=== PATIENT | female | born 1940 | race Caucasian/White ===

== ENCOUNTER 2020-09-11 15:44 | Emergency (ER) | payer MEDICARE, SELFPAY ==
[2020-09-11 16:00] VITALS: BP 139/61; PULSE 74; RESP 18; TEMP 36.3; O2SAT 98
== END 2020-09-11 16:25 | disposition left against medical advice (07) ==
PROVIDERS: Emergency Provider Internal Medicine Hematology & Oncology
DX: Z53.21 Procedure and treatment not carried out due to patient leaving prior to being seen by health care provider (principal)
CPT/HCPCS: 99199

== ENCOUNTER 2021-02-24 11:37 | Outpatient (CLI) | payer MEDICARE, SELFPAY ==
--- NOTE | ~2021-02-24 | CT_ITS ---
EXAMINATION: CT abdomen pelvis w con EXAM DATE: 02/24/2021 12:38 INDICATION: Weight loss 40 pounds in 4 months, history chronic pancreatitis. TECHNIQUE: Spiral CT of the abdomen and pelvis was performed following intravenous injection of 100 m L Omnipaque 350. Axial, coronal and sagittal images of the abdomen and pelvis were reviewed. The do se-length product (DLP) for this examination was 296.21 mGy-cm. The exposure was tailored according to patient size (auto mA exposure control), and iterative reconstruction (ASIR) was used as additiona l dose reduction technique. There is no prior study for comparison. FINDINGS: The liver, spleen, adrenal glands and pancreas are unremarkable. Gallbladder not identifie d, patient likely has had cholecystectomy. Small amount of pneumobilia. Portal and splenic veins are patent. Kidneys enhance symmetrically. There is no hydronephrosis. The uterus is not identified and has likely been surgically resected. The bladder is unremarkable. There is no retroperitoneal o r pelvic lymphadenopathy. The appendix is not positively visualized. There is no pericecal inflammatory change to suggest appe ndicitis. There is mild to moderate scattered colonic diverticulosis. There is no adjacent inflammat ory change to suggest diverticulitis. The stomach and small bowel are unremarkable. There is expecte d amount of colonic stool. No free intraperitoneal gas. The heart is normal in size. There are n o pericardial or pleural effusions. The lung bases are unremarkable. There are no osteoblastic or o steolytic lesions identified. Mild lumbar levoscoliosis. IMPRESSION: 1. Mild to moderate colonic diverticulosis. 2. No malignancy identified. Reviewed, dictated and finalized at location B. CTOR OF RESEARCH AND DEVELOPMENT
[2021-02-24 12:22] LABS: Estimated Glomerular Filt Rate > 60
[2021-02-24 13:11] LABS: Basophils Percent Auto 0.7 % (0.2-1.2); Eosinophils Percent Auto 0.5 % (0-4.4); Hemoglobin 12.9 g/dL (12.0-15.0); Immature Granulocyte Absolute 0.01 K/mm3 (0.00-0.031); Immature Granulocyte Percent A 0.2 % (0-0.5); Lymphocytes Absolute Auto 1.57 K/mm3 (0.9-3.2); Mean Corpuscular HGB Conc 31.5 g/dl (32-36); Mean Corpuscular Hemoglobin 28.7 pg (26-34); Mean Corpuscular Volume 91.3 fl (80-100); Mean Platelet Volume 9.3 fl (7.4-10.4); Monocytes Absolute Auto 0.4 K/mm3 (0.1-0.6); Monocytes Percent Auto 6.8 % (2.6-8.5); Neutrophils Absolute Auto 3.6 K/mm3 (1.3-6.7); Neutrophils Percent Auto 63.8 % (45.5-73.1); Platelet Count Result 211 k/mm3 (150-375); Red Blood Count 4.49 M/mm3 (4.2-5.4); Red Cell Distribution Width 13.3 % (11.5-14.5); White Blood Count 5.6 K/mm3 (4.5-10.0)
[2021-02-24 13:27] LABS: Alanine Aminotransferase 15 U/L (4-35); Albumin Level 4.8 g/dL (3.5-5.1); Alkaline Phosphatase 63 U/L (38-126); Anion Gap 12 mmol/L (8-16); Aspartate Amino Transferase 28 U/L (14-36); Bilirubin,Total 0.4 mg/dL (0.2-1.3); Blood Urea Nitrogen 16 mg/dL (7-17); Calcium 9.4 mg/dL (8.4-10.2); Carbon Dioxide 24 mmol/L (22-30); Chloride 98 mmol/L (98-107); Estimated Glomerular Filt Rate > 60; Glucose 96 mg/dL (65-110); Potassium 3.7 mmol/L (3.4-5.0); Sodium 134 mmol/L (137-145)
[2021-02-24 13:35] LABS: Amylase 68 U/L (30-110); Lipase 45 U/L (23-300); Magnesium 1.9 mg/dL (1.6-2.3)
[2021-02-24 13:59] LABS: Erythrocyte Sedimentation Rate 12 mm/hr (0-20)
== END 2021-02-24 11:38 | disposition home or self-care (01) ==
PROVIDERS: PCP Internal Medicine; Visit Provider Internal Medicine
DX: R63.4 Abnormal weight loss (principal); I11.0 Hypertensive heart disease with heart failure; K86.1 Other chronic pancreatitis; N18.9 Chronic kidney disease, unspecified; K57.30 Diverticulosis of large intestine without perforation or abscess without bleeding
CPT/HCPCS: 74177; 80053; 82150; 83690; 83735; 85025; 85652; Q9967

== ENCOUNTER 2021-11-03 13:47 | Outpatient (CLI) | payer MEDICARE, SELFPAY ==
[2021-11-03 18:57] LABS: Basophils Absolute Auto 0.1 K/mm3 (0.0-0.1); Basophils Percent Auto 0.6 % (0.2-1.2); Eosinophils Absolute Auto 0.1 K/mm3 (0-0.3); Eosinophils Percent Auto 0.8 % (0-4.4); Hematocrit 32.6 % (37.0-47.0); Hemoglobin 9.7 g/dL (12.0-15.0); Immature Granulocyte Absolute 0.01 K/mm3 (0.00-0.031); Immature Granulocyte Percent A 0.1 % (0-0.5); Lymphocytes Absolute Auto 1.95 K/mm3 (0.9-3.2); Lymphocytes Percent Auto 25.3 % (18.3-44.2); Mean Corpuscular HGB Conc 29.8 g/dl (32-36); Mean Corpuscular Hemoglobin 25.9 pg (26-34); Mean Corpuscular Volume 87.2 fl (80-100); Mean Platelet Volume 10.5 fl (7.4-10.4); Monocytes Absolute Auto 0.4 K/mm3 (0.1-0.6); Monocytes Percent Auto 5.6 % (2.6-8.5); Neutrophils Absolute Auto 5.2 K/mm3 (1.3-6.7); Neutrophils Percent Auto 67.6 % (45.5-73.1); Platelet Count Result 245 k/mm3 (150-375); Red Blood Count 3.74 M/mm3 (4.2-5.4); Red Cell Distribution Width 15.1 % (11.5-14.5); White Blood Count 7.7 K/mm3 (4.5-10.0)
[2021-11-03 19:05] LABS: Alanine Aminotransferase 16 U/L (6-35); Albumin Level 4.4 g/dL (3.5-5.1); Alkaline Phosphatase 46 U/L (38-126); Amylase 84 U/L (30-110); Anion Gap 9 mmol/L (8-16); Aspartate Amino Transferase 34 U/L (14-36); Bilirubin,Total 0.3 mg/dL (0.2-1.3); Blood Urea Nitrogen 20 mg/dL (7-17); Calcium 8.7 mg/dL (8.4-10.2); Carbon Dioxide 28 mmol/L (22-30); Chloride 101 mmol/L (98-107); Estimated Glomerular Filt Rate 53; Glucose 122 mg/dL (65-110); Lipase 104 U/L (23-300); Potassium 4.5 mmol/L (3.4-5.0); Sodium 138 mmol/L (137-145)
[2021-11-03 19:32] LABS: Ferritin 8.52 ng/mL (11.1-264)
[2021-11-03 19:35] LABS: Hypochromasia 1+ (NORMAL); Ovalocytes 1+ (NORMAL); Platelet Estimate Adequate (Adequate)
== END 2021-11-03 13:48 | disposition home or self-care (01) ==
PROVIDERS: PCP Internal Medicine; Visit Provider Internal Medicine
DX: E03.9 Hypothyroidism, unspecified (principal); Z87.19 Personal history of other diseases of the digestive system; D64.9 Anemia, unspecified; R11.0 Nausea
CPT/HCPCS: 36415; 80053; 82150; 82728; 83690; 84443; 85025

== ENCOUNTER 2022-09-19 11:46 | Emergency (ER) | payer MEDICARE, SELFPAY ==
[2022-09-19 12:05] VITALS: BP 111/86; PULSE 67; RESP 16; TEMP 36.5; O2SAT 95
--- NOTE | 2022-09-19 13:32 | ED.GENADULT ---
HPI - General Adult General Chief complaint: Skin/Abscess/Foreign Body Stated complaint: rash on left arm-possible bug bites Time Seen by Provider: 09/19/22 12:19 History of Present Illness HPI narrative: 81-year-old female reports for evaluation for areas of redness on her right arm since yesterday. She states she thinks she may have been bitten by a bug and noticed while she was brushing her teeth. States today she noticed that there was increased redness. She denies itchiness but does report pain when it is touched. Denies fever, bodyaches or chills, chest pain or shortness of breath, nausea or vomiting, drainage. Related Data Home Medications Medication Instructions Recorded Confirmed magnesium chloride 71.5 mg 71.5 mg PO DAILY 03/15/19 05/03/22 (magnesium chloride) tablet,delayed release (Slow-Mag) cholecalciferol (vitamin D3) 25 25 mcg PO DAILY 12/31/19 05/03/22 mcg (1,000 unit) capsule ursodiol 250 mg tablet 250 mg PO DAILY 12/31/19 05/03/22 omeprazole 40 mg capsule,delayed 40 mg PO DAILY 01/16/20 05/03/22 release clonazepam 0.25 mg disintegrating 0.5 mg PO DAILY PRN 02/24/21 05/03/22 tablet metoprolol tartrate 25 mg tablet 12.5 mg PO BID 04/21/21 05/03/22 metoclopramide HCl 5 mg tablet 10 mg PO BID 07/07/21 05/03/22 (Reglan) apixaban 5 mg tablet (Eliquis) See Rx Instructions PO BID 11/03/21 05/03/22 Allergies Allergy/AdvReac Type Severity Reaction Status Date / Time meperidine Allergy Unknown Hives Verified 09/19/22 12:35 Penicillins Allergy Unknown Hives Verified 09/19/22 12:35 Review of Systems Review of Systems: CONSTITUTIONAL: Denies fever, chills EYES: Denies visual changes, redness, or discharge. ENT: Denies rhinorrhea, congestion, sore throat, or otalgia. CARDIOVASCULAR: Denies chest pain, palpitations, or edema. RESPIRATORY: Denies cough or dyspnea. GASTROINTESTINAL: Denies abdominal pain, nausea, vomiting, or diarrhea. GENITOURINARY: Denies dysuria or hematuria. SKIN: See HPI MUSCULOSKELETAL: Denies back pain, joint pain, or myalgia. NEUROLOGIC: Denies headache, numbness, dizziness, or weakness. PSYCHIATRIC: Denies anxiety or depression. [facility] Past Medical History Medical History Acquired hypothyroidism Benign essential hypertension Chronic pancreatitis CKD (chronic kidney disease) HLD (hyperlipidemia) Positive colorectal cancer screening using Cologuard test Surgical History Surgical History History of appendectomy History of cholecystectomy History of ERCP History of hysterectomy Family History Family History Father Diabetes mellitus Sibling Lung cancer Son Epilepsy Social History Social History Smoking status: Never smoker Smoking end date: 03/14/80 Alcohol intake: never Exam Narrative: GENERAL: Well-appearing, in no acute distress. Patient resting in room examined. She is pleasant and conversational HEAD: Normocephalic EYES: PERRLA ENT: Nares clear. Mucous membranes moist. Oropharynx without tonsillar hypertrophy exudate or other lesions. NECK: Supple. CHEST: No respiratory distress. Clear to auscultation, no adventitious breath sounds. HEART: Regular rate and rhythm. No murmur heard. Normal peripheral pulses. EXTREMITIES: Normal range of motion. No edema. SKIN: 2 regions of blanching erythema and warmth to the dorsum of the right forearm, one area measuring 2 x 2, one area measuring 5 x 3 with tenderness to palpation. Radial pulse 2+. Cap refill less than 2. Sensation intact. Negative Nikolsky's. No fluctuance, bullae or edema. No other lesions throughout skin. NEURO: No focal deficits. Alert and oriented x3. PSYCH: Normal mood and affect. Course Vital Signs Vital signs: Vital Signs Temperat
== END 2022-09-19 14:01 | disposition home or self-care (01) ==
PROVIDERS: Emergency Provider Physician Assistant; PCP Student in an Organized Health Care Education/Training Program
DX: L03.113 Cellulitis of right upper limb (principal); I12.9 Hypertensive chronic kidney disease with stage 1 through stage 4 chronic kidney disease, or unspecified chronic kidney disease; N18.9 Chronic kidney disease, unspecified; E78.5 Hyperlipidemia, unspecified; K86.1 Other chronic pancreatitis; E03.9 Hypothyroidism, unspecified; Z90.710 Acquired absence of both cervix and uterus; Z90.49 Acquired absence of other specified parts of digestive tract
CPT/HCPCS: 99283

== ENCOUNTER 2024-11-23 14:08 | Outpatient (CLI) | payer MEDICARE, SELFPAY ==
--- OUTSIDE RECORDS SUMMARY | 2009-05-26 05:00 | XMS_ITS | Continuity of Care Document ---
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 Role Phone Will Solis Unavailable Unavailable Procedures Procedure Date Office/outpatient Visit, Est Office/outpatient Visit, Est Office Consultation Advance Directives Directive Yes / No Effective Date File Name No Information Encounters Encounter Description Practice Location Reason(s) For Visit Diagnoses Date Provider Providers Copied on Encounter Office/outpati ent Visit, Est [facility], [id number] [place] [address] [address], [place], [place], [id number], [place] tel:[phone] [facility] No Information 5-201 0 Irma Solis. [address] , [address], [place], [address], [place]. tel:[phone] Referring Provider: Liya Roe OD, [address], [place], [address]. tel:[phone] Office/outpati ent Visit, [facility], [address] [place] [address] [address], [place], [place], [id number], [place] tel:[phone] [facility] No Information 2-200 8 Irma Solis. [address] , [address], [place], [address], [place]. tel:[phone] Office Consultation [facility], [address], [place], [place], [id number], [place] tel:[phone] [facility] No Information 3-200 8 Irma Solis. [address] , [address], [place], [address], [place]. tel:[phone] Referring Provider: Jesus Lim [address] [place] [address] Rd, [place], [address]. tel:[phone] Family History Family Member Type Diagnosis Age At Onset No Information Payers Payer name Insurance type Covered libertarian ID Authoreza david(s) [facility] Out Of State [id number] Social History Type Description Quantity Date Captured Comments Sex Female Smoking Status No Information Chief Complaint And Reason For Visit No Information Reason For Referral Reason For Referral No Information History Of Present Illness Encounter Date Complaint History Of Prese nt Illness No Information Functional Status Date Functional Assessmen t No Information Instructions Date Instruction Additional Infor mation No Information Assessments Type Assessment Date No Information Patient Care Teams Name Effective Dates (start - stop) Status Members No Information
--- NOTE | ~2024-11-23 | CT_ITS ---
Fela Funes EXAMINATION: CT abdomen pelvis w con COMPARISON: None HISTORY: R10.10 - Upper abdominal pain, unspecified TECHNIQUE: Axial images were obtained through the abdomen, pelvis post administration of IV contrast. Oral contrast was also administered. Coronal reconstruction images were obtained from the axial views. CT scan performed using dose optimization techniques including the following automated exposure control; adjustment of mA and/or kV; use of iterative reconstruction technique. Automatic exposure control was used to reduce radiation dose. Permanent radiation dose record is archived to PACS. FINDINGS: CT abdomen: LUNG BASES: Lung bases demonstrate bibasilar areas of linear atelectasis. LIVER: Mild pneumobilia noted in the left lobe liver. The portal vein is patent. No intrahepatic biliary duct dilatation. SPLEEN: Unremarkable. KIDNEYS: Right Kidney: Unremarkable. No calculi. No hydronephrosis. Left Kidney: Unremarkable. No calculi. No hydronephrosis ADRENAL GLANDS: Unremarkable. PANCREAS: Moderate atrophy of the pancreas with dilatation of the pancreatic duct measuring 5 mm with suggestion of a cystic lesion of the pancreatic tail incompletely evaluated, contrast-enhanced MRI is suggested. GALLBLADDER/BILIARY: Gallbladder not identified. STOMACH AND ESOPHAGUS: The stomach is decompressed. BOWEL/MESENTERY: Moderate fecal content. No colitis or diverticulitis. Appendix not identified, no inflammation surrounding the cecum. Mesentery normal. Small bowel normal. No dilated small bowel loops. ADENOPATHY/RETROPERITONEUM: No lymphadenopathy. AORTA/VASCULATURE: Normal caliber aorta. FREE FLUID OR FREE AIR: Minimal free fluid.. CT pelvis: SOLID ORGANS/REPRODUCTIVE: Posthysterectomy. No adnexal mass. BLADDER: Within normal limits. OSSEOUS STRUCTURES: No acute osseous abnormality.No suspicious lesions. OVERLYING SOFT TISSUES: Unremarkable. IMPRESSION: 1. No acute intra-abdominal process. Incidental findings above Reviewed, dictated and finalized at location A.
--- OUTSIDE RECORDS SUMMARY | 2024-11-23 14:53 | XMS_ITS | Clinical Summary ---
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 This disclosure is being madepursuant to the Care Everywhere program and may not contain all information available regarding this patient. Last updated 17.[facility] Medications * Be aware that medications may not be up to date on this document. Alwaysverify current medications with the patient. 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 Gender Identity Not on file Sexual Orientation Not on file Last Filed Vital Signs Vital Sign Reading Time Taken Comments Blood Pressure 133/69 02/11/2017 11:22 AM BUILDING OFFICIAL Pulse 65 02/11/2017 11:22 AM BUILDING OFFICIAL Temperature 36.7 C (98 F) 02/11/2017 11:22 AM BUILDING OFFICIAL Respiratory Rate 18 02/11/2017 11:22 AM BUILDING OFFICIAL Oxygen Saturation 100% 01/09/2016 10:45 AM CDT Inhaled Oxygen Concentration - - Weight 67.6 kg (149 lb) 03/27/2017 1:15 PM BUILDING OFFICIAL Height 165.1 cm (5' 5) 03/27/2017 1:15 PM BUILDING OFFICIAL Body Mass Index 24.79 03/27/2017 1:15 PM BUILDING OFFICIAL Plan of Treatment Health Maintenance Due Date Last Done Comments BONE DENSITY TESTING 1940 DTAP/TDAP/TD VACCINES (1 - Tdap) 12/16/1959 PNEUMOCOCCAL VACCINE 50+ (1 of 1 - PCV) 1990 ZOSTER VACCINE (1 of 2) 1990 Respiratory Syncytial Virus (RSV) Vaccine Pt: or over 60 yrs (1 - 1-dose 75+ series) 12/16/2015 DEPRESSION SCREENING 03/14/2024 COVID-19 VACCINE (1 - 2023-2 5 season) 2024 INFLUENZA VACCINE (#1) 2024 HEPATITIS B VACCINE Aged Out No longe r eligible based on patient's age to complete this topic HIB VACCINE Aged Out No longer eligi ble based on patient's age to complete this topic HPV VACCINE Aged Out No longer eligi ble based on patient's age to complete this topic MENINGOCOCCAL (Group B) VACC INE SHARED DECISION-MAKING Aged Out No longer eligibl e based on patient's age to complete this topic MENINGOCOCCAL GROUPS A/C/Y/W VACCINE Aged Out No longer eligible b ased on patient's age to complete this topic
== END 2024-11-23 14:09 | disposition home or self-care (01) ==
LOC: ANHIMG 14:09
PROVIDERS: PCP Student in an Organized Health Care Education/Training Program; Visit Provider Nurse Practitioner Family
DX: R10.10 Upper abdominal pain, unspecified (principal); R11.0 Nausea
CPT/HCPCS: 74177; Q9967

== ENCOUNTER 2025-02-19 12:33 | Outpatient (CLI) | payer MEDICARE, SELFPAY ==
--- NOTE | ~2025-02-19 | MR_ITS ---
EXAMINATION: MR MRCP wo/w con/w 3D wo ind DATE: 02/19/2025 14:14 INDICATION: Chronic pancreatitis TECHNIQUE: Magnetic resonance imaging (MRI) of the abdomen was performed with and without intravenous contrast. Sequences included coronal T2-weighted FS FSE, coronal T2-weighted FSE, axial T1-weighted LAVA, coronal FS FIESTA, axial dual- echo T1-weighted SPGR, coronal lava-FLEX, sagittal T2-weighted FSE, axial T2- weighted FSE, and axial DWI. Thick-slab T2-weighted FSE images were obtained for magnetic resonance cholangiopancreatography (MRCP). Maximum intensity projection 3-D reconstructions of the volumetric data were created by the technologist. Postcontrast sequences included coronal LAVA-flex and time course of axial T1- weighted LAVA. COMPARISON: CT of the abdomen and pelvis from November 23, 2024 FINDINGS: Patient status post cholecystectomy. The liver spleen and adrenal glands as well as kidneys appear within normal limits. The common bile duct measures approximately 1.1 cm in the greatest diameter. The left and right biliary ducts taper to normal size. The pancreatic duct measures up to 5.3 mm with no discrete filling defects seen. The convergence of the pancreatic duct in the ampulla is poorly seen. No discrete lesion or mass seen in the uncinate region or pancreatic head or uncinate region. The pancreatic body is atrophied. No obvious mass seen. In the pancreatic tail region, a 1.3 x 1.2 x 1.0 mildly complex cystic mass is present. This can be seen on image 25 series 4. Postcontrast images difficult to visualize but no prominent solid component for this lesion present. IMPRESSION: 1. 1.3 cm mildly complex cystic lesion in the pancreatic tail region may represent intraductal papillary mucinous neoplasm or sequelae from pancreatitis. Follow-up MRI in 6 months recommended or sooner if clinically appropriate. 2. Ductal prominence involving the common bile duct and pancreatic duct probably associated with benign postcholecystectomy reservoir effect. No discrete lesion or mass seen in the pancreatic uncinate or head region. Reviewed, dictated and finalized at location A. REMENT SPECIALIST IMPRESSION: 1. 1.3 cm mildly complex cystic lesion in the pancreatic tail region may repres ent intraductal papillary mucinous neoplasm or sequelae from pancreatitis. Foll ow-up MRI in 6 months recommended or sooner if clinically appropriate. 2. Ductal prominence involving the common bile duct and pancreatic duct probabl y associated with benign postcholecystectomy reservoir effect. No discrete lesi on or mass seen in the pancreatic uncinate or head region.
== END 2025-02-19 12:34 | disposition home or self-care (01) ==
PROVIDERS: PCP Student in an Organized Health Care Education/Training Program; Visit Provider Nurse Practitioner Family
DX: K86.1 Other chronic pancreatitis (principal); R63.1 Polydipsia; R11.14 Bilious vomiting; R63.4 Abnormal weight loss
CPT/HCPCS: 74183; 76376; A9577